=== PATIENT | female | born 1975 | race Caucasian/White ===

== ENCOUNTER → 2020-09-30 | Outpatient (CLI) | payer OTHER ==
[2020-09-30 12:29] LABS: HCG UR SG 1.001 (1.003-1.030)
[2020-09-30 12:31] LABS: BASOPHILS % (AUTO) 1 % (0-1); EOSINOPHILS % (AUTO) 2 % (1-7); LYMPHOCYTES % (AUTO) 27 % (22-44); MEAN CORPUSCULAR HEMOGLOBIN 25.9 pg (27.0-34.8); MEAN CORPUSCULAR HGB CONC 32.5 g/dL (32.4-35.8); MONOCYTES % (AUTO) 7 % (2-9); NEUTROPHILS % (AUTO) 63 % (42-75); PLATELET COUNT 254 x10^3/uL (130-400); RED BLOOD COUNT 4.66 x10^6/uL (3.82-5.3); RED CELL DISTRIBUTION WIDTH 15.5 % (9.6-15.2)
[2020-09-30 12:33] LABS: MD NO
[2020-09-30 12:34] LABS: ANION GAP 2 mmol/L (5-15); CALCIUM 9.2 mg/dL (8.5-10.1); CHLORIDE 110 mmol/L (98-107); CREATININE 0.82 mg/dL (0.55-1.02)
== END | disposition home or self-care (01) ==
LOC: STAR 11:18
PROVIDERS: ATTEND Obstetrics & Gynecology
DX: Z01.812 Encounter for preprocedural laboratory examination (principal); R10.2 Pelvic and perineal pain; G89.29 Other chronic pain; N94.6 Dysmenorrhea, unspecified; Z20.828 Contact with and (suspected) exposure to other viral communicable diseases
CPT/HCPCS: 80048; 81025; 85025; 87635

== ENCOUNTER 2020-10-06 10:54 | Day surgery (SDC) | payer OTHER ==
[~2020-10-06] VITALS: Ht 165.1 cm; Wt 61.0 kg
[2020-10-06] MEDS ORDERED: CHLORHEXIDINE 15 ML UDC MM STA (11:28)
[2020-10-06] MEDS ORDERED: LACTATED RINGERS 1,000 ML IV SCH (11:30)
[2020-10-06 12:13] LABS: HCG UR SG 1.005 (1.003-1.030)
[2020-10-06] MEDS ORDERED: FENTANYL PF 250 MCG/5ML ONE (12:41)
[2020-10-06] MEDS ORDERED: MIDAZOLAM 1 MG/ML, 2ML ONE (12:41)
[2020-10-06] MEDS ORDERED: PROMETHAZINE 25 MG/ML, 1ML IVPush PRN (13:00)
[2020-10-06] MEDS ORDERED: OXYcodone 5 MG/5 ML ORAL.SOL UDC PO PRN (13:00)
[2020-10-06] MEDS ORDERED: DIPHENHYDRAMINE 50 MG/ML, 1ML IVPush PRN (13:00)
[2020-10-06] MEDS ORDERED: LABETALOL 5MG/ML, 20ML IV PRN (13:00)
[2020-10-06] MEDS ORDERED: HALOPERIDOL 5 MG/ML IV PRN (13:00)
[2020-10-06] MEDS ORDERED: HYDROmorphone 1 MG/ML, 1ML INJ IVPush PRN (13:00)
[2020-10-06] MEDS ORDERED: hydrALAzine 20 MG/ML, 1ML IV PRN (13:00)
[2020-10-06] MEDS ORDERED: MEPERIDINE/PF 25MG/0.5ML IVPush PRN (13:00)
[2020-10-06] MEDS ORDERED: FLUORESCEIN SODIUM 500 MG/5 ML ONE (13:05)
[2020-10-06] MEDS ORDERED: BUPIVACAINE/PF 0.25% ONE (13:05)
[2020-10-06] MEDS ORDERED: EPINEPHRINE 1 MG/ML, 1ML ONE (13:06)
[2020-10-06] MEDS ORDERED: PROPOFOL 10 MG/ML, 20ML ONE (13:53)
[2020-10-06] MEDS ORDERED: ROCURONIUM 10MG/ML,5ML ONE (13:57)
[2020-10-06] MEDS ORDERED: CEFAZOLIN 1,000 MG ONE ×2 (13:57→13:58)
[2020-10-06] MEDS ORDERED: KETOROLAC 30 MG/1 ML ONE (13:58)
[2020-10-06] MEDS ORDERED: ONDANSETRON 2MG/ML, 2ML ONE (13:58)
[2020-10-06] MEDS ORDERED: DEXAMETHASONE 4 MG/ML, 5ML ONE (13:58)
[2020-10-06] MEDS ORDERED: SUCCINYLCHOLINE 20 MG/ML, 10ML ONE (14:10)
[2020-10-06] MEDS ORDERED: OXYcodone 5 MG/5 ML ORAL.SOL UDC ONE (15:12)
[2020-10-06] MEDS ORDERED: FENTANYL PF 100 MCG/2ML ONE (15:12)
[2020-10-06] MEDS: FENTANYL PF 100 MCG/2ML IV PRN ×2 (15:15→15:25)
== END 2020-10-06 19:25 | disposition home or self-care (01) ==
LOC: OUT 10:54
PROVIDERS: ATTEND Obstetrics & Gynecology
DX: R10.2 Pelvic and perineal pain (principal); N94.6 Dysmenorrhea, unspecified; N87.9 Dysplasia of cervix uteri, unspecified; D25.2 Subserosal leiomyoma of uterus; Z88.0 Allergy status to penicillin; Z88.8 Allergy status to other drugs, medicaments and biological substances; Z90.79 Acquired absence of other genital organ(s); Z98.890 Other specified postprocedural states
CPT/HCPCS: 58550; 81025; 88307; J0171; J0330; J0690; J1100; J1885; J2250; J2405; J2704; J3010; J7120